=== PATIENT | female | born 1990 | race Caucasian/White ===

== ENCOUNTER 2020-10-08 05:04 | Emergency (ER) | payer OTHER ==
[2020-10-08 05:24] LABS: BASOPHIL 0.8 % (0-2); EOSINOPHIL 3.4 % (0-5); HCT 41.2 % (37.0-47.0); HGB 13.7 g/dl (12.5-16.0); LYMPHOCYTE 38.3 % (15-48); MCH 30.4 pg (25.0-31.0); MCHC 33.3 g/dL (32.0-36.0); MCV 91.6 fL (78.0-100.0); MONOCYTE 10.5 % (0-12); MPV 10.4 fL (6.0-9.5); NEUTROPHIL 46.7 % (41-80); NRBC 0; PLT 256 K/uL (150-400); WBC 7.5 K/uL (4.0-10.5)
[2020-10-08 05:35] LABS: INR 0.98 (0.9-1.2); PROTHROMBIN TIME 12.3 SECONDS (11.4-13.6); PTT 27.6 SECONDS (22.2-34.7)
[2020-10-08 05:45] LABS: ALBUMIN 3.5 g/dL (3.4-5.0); BILIRUBIN - TOTAL 0.2 mg/dL (0.2-1.0); BUN/CREAT RATIO (CALC) 19.8 RATIO; CREATININE 0.81 mg/dL (0.51-0.95); GLOBULIN (CALCULATION) 3.6 g/dL; POTASSIUM 3.7 mmol/L (3.5-5.1); TOTAL PROTEIN 7.1 g/dL (6.4-8.2)
[2020-10-08] MEDS ORDERED: CYCLOBENZAPRINE10 MG PO (07:52)
== END 2020-10-08 08:15 | disposition home or self-care (01) ==
LOC: FER 05:04
PROVIDERS: Student in an Organized Health Care Education/Training Program
DX: R07.89 Other chest pain (principal); R06.02 Shortness of breath; R05 Cough; R00.0 Tachycardia, unspecified; Z88.1 Allergy status to other antibiotic agents
CPT/HCPCS: 36415; 71045; 71275; 80053; 84484; 85025; 85610; 85730; 93005; Q9967

== ENCOUNTER 2020-11-26 06:24 | Emergency (ER) | payer OTHER ==
[~2020-11-26 06:24] MED LIST: CYCLOBENZAPRINE10 MG PO
[2020-11-26 07:02] LABS: BASOPHIL 0.9 % (0-2); EOSINOPHIL 3.5 % (0-5); HCT 43.3 % (37.0-47.0); HGB 14.4 g/dl (12.5-16.0); LYMPHOCYTE 32.6 % (15-48); MCH 30.8 pg (25.0-31.0); MCHC 33.3 g/dL (32.0-36.0); MCV 92.5 fL (78.0-100.0); MONOCYTE 9.6 % (0-12); MPV 10.3 fL (6.0-9.5); NEUTROPHIL 53.1 % (41-80); NRBC 0; PLT 278 K/uL (150-400); RBC 4.68 M/uL (4.20-5.40); RDW 12.9 % (11.5-14.0); WBC 7.7 K/uL (4.0-10.5)
[2020-11-26 07:18] LABS: ALBUMIN 3.8 g/dL (3.4-5.0); BILIRUBIN - TOTAL 0.5 mg/dL (0.2-1.0); BUN/CREAT RATIO (CALC) 24.1 RATIO; CREATININE 0.87 mg/dL (0.51-0.95); GLOBULIN (CALCULATION) 3.9 g/dL; TOTAL PROTEIN 7.7 g/dL (6.4-8.2)
[2020-11-26] MEDS ORDERED: ATARAX25 MG PO (08:12)
[2020-11-26] MEDS ORDERED: DIAZEPAM 5MG TAB5 MG PO (08:12)
== END 2020-11-26 08:45 | disposition home or self-care (01) ==
LOC: FER 06:24
PROVIDERS: Emergency Medicine Emergency Medical Services
DX: F41.0 Panic disorder [episodic paroxysmal anxiety] (principal); E66.9 Obesity, unspecified; Z88.1 Allergy status to other antibiotic agents; Z87.19 Personal history of other diseases of the digestive system
CPT/HCPCS: 36415; 71045; 80053; 83880; 84703; 85025; 85379; 93005